=== PATIENT | female | born 1955 | race Caucasian/White ===

== ENCOUNTER 2018-09-25 10:03 | Outpatient (CLI) | payer OTHER | END 2018-09-25 10:04 | disposition home or self-care (01) | LOC: CTENTCT 10:03 | PROVIDERS: ATTEND Specialist | DX: J33.9 Nasal polyp, unspecified (principal) | CPT/HCPCS: 70486 ==

== ENCOUNTER 2018-10-04 14:06 | Day surgery (SDC) | payer OTHER ==
[2018-10-03 12:50] VITALS: BMI 51.8
[2018-10-04] MEDS ORDERED: Oxymetazoline HCl 0.05% ( 15 ML ) ONE ×2 (14:45→15:05)
[2018-10-04] MEDS ORDERED: Lidocaine 1% w/Epinephrine 1:100K 20 ML VIAL ONE (15:05)
[2018-10-04] MEDS ORDERED: Bacitracin Zinc Ointment 30 gm TUBE ONE (15:05)
[2018-10-04] MEDS ORDERED: Famotidine/PF 20 mg/2ml Vial ONE (15:17)
[2018-10-04] MEDS ORDERED: Fentanyl 100 MCG/2 ML VIAL ONE (15:17)
[2018-10-04] MEDS ORDERED: Triamcinolone 40 MG/ML VIAL ONE (16:23)
[2018-10-04] MEDS ORDERED: Lidocaine 1% PF 5 ML VIAL ONE (16:51)
[2018-10-04] MEDS ORDERED: Succinylcholine Chloride 20 MG/ML 10 ml SYRINGE FS ONE (16:51)
[2018-10-04] MEDS ORDERED: PHENYLEPHRINE-NS 100 MCG/ML 10 ML SYRINGE ONE (16:51)
[2018-10-04] MEDS ORDERED: ePHEDrine 50 MG/ML VIAL ONE (16:51)
[2018-10-04] MEDS ORDERED: PROPOFOL 200 MG/20 ML VIAL ONE (16:51)
[2018-10-04] MEDS ORDERED: Metoclopramide HCl 10 MG/2 ML VIAL ONE (16:51)
[2018-10-04] MEDS ORDERED: Dexamethasone 20 MG/5 ML VIAL ONE (16:51)
[2018-10-04] MEDS ORDERED: Ondansetron PF 4 MG/2 ML Vial ONE (16:51)
--- NOTE | 2018-10-05 07:07 | EKG ---
Test Reason : PREOP Blood Pressure : / mmHG Vent. Rate : 080 BPM Atrial Rate : 080 BPM P-R Int : 180 ms QRS Dur : 094 ms QT Int : 398 ms P-R-T Axes : 065 -05 005 degrees QTc Int : 459 ms Normal sinus rhythm Minimal voltage criteria for LVH, may be normal variant Nonspecific ST-T changes Abnormal ECG No previous ECGs available Confirmed by DR. Char CHAPA ([id number]) on 10/05/2018 7:07:05 AM Referred By: WESLEY Confirmed By:DR. Char CHAPA
--- NOTE | 2018-10-05 13:49 | OP ---
DATE OF PROCEDURE: 10/04/2018 PREOPERATIVE DIAGNOSES: 1. Nasal polyposis. 2. Chronic sinusitis. 3. Hypertrophic inferior turbinates. POSTOPERATIVE DIAGNOSES: 1. Nasal polyposis. 2. Chronic sinusitis. 3. Hypertrophic inferior turbinates. PROCEDURES PERFORMED: 1. Bilateral nasal endoscopy with nasal polypectomy. 2. Bilateral nasal endoscopy with maxillary antrostomy and removal of tissue. 3. Bilateral nasal endoscopy with total ethmoidectomy. 4. Bilateral nasal endoscopy with sphenoidotomy. 5. Bilateral nasal endoscopy with frontal sinusotomy. 6. Bilateral nasal endoscopy with submucosal resection of inferior turbinates. BLOOD LOSS: Approximately 25 mL. SPECIMENS: Specimens were sent for histology and culture. FINDINGS: There were pus encountered and polyps throughout all sinuses. PROCEDURE IN DETAIL: BILATERAL NASAL ENDOSCOPY WITH NASAL POLYPECTOMY: Under endoscopic visualization, the nasal cavity was systematically examined and encountered large inflammatory polyps. These polyps were infiltrated 1% lidocaine with 1:100,000 epinephrine. The polyps were then addressed using the [employer] shaver. Then, the polyps were removed with care not to injure the surrounding normal mucosa. Samples of polyps were taken and sent for histologic evaluation. Bleeding was then controlled. BILATERAL NASAL ENDOSCOPY WITH MAXILLARY ANTROSTOMY AND REMOVAL OF TISSUE: The uncinate was then identified and the extent of the uncinate was appreciated by out-fracturing the uncinate with the ball-tip probe. We then used the sickle blade to disarticulate the uncinate from the lateral nasal wall. This was then removed with straight biting and upbiting punches with the remaining shrouds of mucosa and bony septum removed with the micro-debrider. The natural os of the maxillary sinus was then identified and enlarged with the maxillary punches and back biting forceps. BILATERAL NASAL ENDOSCOPY WITH TOTAL ETHMOIDECTOMY: The anterior face of the ethmoid bulla was entered and with the micro-debrider, dissection continued posteriorly to the ground lamella. The limits of dissection included the insertion of the middle turbinate, medial orbital wall, and base of skull. We similarly identified the frontal recess and removed shrouds of bone and debris in that region to obtain patency into the agger nasi region and frontal recess. We then entered the ground lamella and its anteroinferior aspect and proceeded posteriorly, opening the posterior ethmoid air-cell system. Again, the limits of dissection included the base of skull and medial orbital wall. BILATERAL NASAL ENDOSCOPY WITH SPHENOIDOTOMY: The anterior face of the sphenoid was identified and entered in its extreme anteroinferior aspect. A sphenoid punch was then used to enlarge the sphenoidotomy and no injury to the optic nerve or internal carotid artery occurred. BILATERAL NASAL ENDOSCOPY WITH FRONTAL SINUSOTOMY: Following the ethmoidectomy, we then turned our attention to the frontal nasal recess. The agger nasi cells were addressed and the frontal recess was exposed. The natural opening to the frontal sinus was identified. At this point, any obstructing shrouds of mucosa and bony fragments were removed with a curved microdebrider. The wound was then examined and found to be free of any obstructing debris. We then turned our attention to the contralateral side and performed a similar procedure again under endoscopic visualization using a 45-degree scope. We were able to visualize the frontal recess. Obstructing shrouds of mucosa and bone were removed with a microdebrider. The natural os of frontal sinus was identified and enlarged and irrigated. At this point, the frontal sinusotomy was completed and we turned to the next area of concern. BILATERAL NASAL ENDOSCOPY WITH SUBMUCOSAL RESECTION OF INFERIOR TURBINATES: After consent was obtained, the patient was identified, brought to the operating room, and placed on the operating room table in the supine position. Consent was obtained, notifying the patient of the possibility of additional infections, bleeding, brain injury, and eye/orbital injury. The patient was placed on the operating room table, and general endotracheal anesthesia and intravenous access was obtained. The patient was then positioned, prepped and draped for endoscopic sinus surgery. Nasal preparation included trimming nasal vestibular hairs and spraying in topical Afrin. We then placed Afrin topical solution on nasal pledgets and strategically located them intranasally. The perinasal mucosa was injected with 1% lidocaine with 1:100,000 epinephrine in the submucoperichondrial plane of the septum, lateral nasal wall, and anterior to the uncinate. The patient was then prepped and draped in a sterile fashion and positioned for endoscopic sinus surgery. With the 0-degree endoscope, the patient underwent systematic nasal endoscopy. There were no suspicious internasal masses or lesions identified. We then focused our attention to the osteomeatal complex region under the middle turbinate. The inferior turbinates were visualized with a 0 degree endoscope and outfractured with a [place] elevator. The inferior medial aspect was cauterized with the electrocautery. Hemostasis was obtained . After adequate airway was established, we turned our attention to the contralateral side and used a similar procedure. Again, a [place] elevator was used to outfracture inferior turbinates under endoscopic visualization. With a suction cautery, the free inferior medial aspect was cauterized under direct visualization along the length of the inferior turbinate. At this point, we then turned our attention to the contralateral side and proceeded with endoscopic sinus surgery. At the completion of the case, [place] keel splints were placed in the ethmoid cavities after the ethmoidectomy. There were no complications. The patient tolerated the procedure well and was discharged to the recovery room in stable condition prior to return to the preoperative day stay with ultimate discharge home. Prescriptions for pain medication and antibiotics were provided. The patient received intramuscular Depo-Medrol during the case. Job ID: [id number]
== END 2018-10-04 18:10 | disposition home or self-care (01) ==
LOC: SDC 14:06
PROVIDERS: ATTEND Specialist
PROC: 099Q8ZZ Drainage of Right Maxillary Sinus, Via Natural or Artificial Opening Endoscopic (ICD-10-PCS; principal; 2018-10-04)
PROC: 09TL8ZZ Resection of Nasal Turbinate, Via Natural or Artificial Opening Endoscopic (ICD-10-PCS; principal; 2018-10-04)
PROC: 09BK8ZZ Excision of Nasal Mucosa and Soft Tissue, Via Natural or Artificial Opening Endoscopic (ICD-10-PCS; principal; 2018-10-04)
PROC: 099R8ZZ Drainage of Left Maxillary Sinus, Via Natural or Artificial Opening Endoscopic (ICD-10-PCS; principal; 2018-10-04)
DX: J34.3 Hypertrophy of nasal turbinates (principal); J32.4 Chronic pansinusitis; J33.9 Nasal polyp, unspecified; J32.9 Chronic sinusitis, unspecified; I10 Essential (primary) hypertension; E78.5 Hyperlipidemia, unspecified; J45.909 Unspecified asthma, uncomplicated; D50.9 Iron deficiency anemia, unspecified; Z79.51 Long term (current) use of inhaled steroids; Z79.82 Long term (current) use of aspirin; Z79.899 Other long term (current) drug therapy
CPT/HCPCS: 36415; 85014; 88304; 93005; 93010; J0131; J1100; J2001; J2405; J2704; J2765; J3010; J3301; J3490; S0028

== ENCOUNTER 2019-04-04 18:00 | Outpatient (CLI) | payer OTHER | END 2019-04-04 18:01 | disposition home or self-care (01) | LOC: SLEEPLAB 18:00 | PROVIDERS: ATTEND Internal Medicine Critical Care Medicine | DX: G47.33 Obstructive sleep apnea (adult) (pediatric) (principal); R06.81 Apnea, not elsewhere classified; E66.9 Obesity, unspecified; G47.00 Insomnia, unspecified | CPT/HCPCS: 95806 ==